=== PATIENT | female | born 1945 | race Caucasian/White ===

== ENCOUNTER 2018-11-02 12:19 | Inpatient (IN) | payer MEDICARE, OTHER ==
[2018-11-01 20:00] VITALS: BP 101/58
[~2018-11-02] VITALS: Ht 172.7 cm; Wt 79.0 kg
[~2018-11-02 12:19] MED LIST: AMBIEN10 MG PO; AUGMENTIN875TAB PO; BENZONATATE200 MG PO; BOOSTRIX IM; CIPROFLOXACN500 MG PO; DETROL2 MG PO; DIFLUCAN150 MG PO; HYDROXYCHLOR200 MG PO; KEFLEX500 MG PO; LEVOTHYROXIN50 MC1 PO; MAGNESIUM30 MG OR; MEDDOSEPAK PO; MUCINEX600 MG PO; OMEGA 31000 MG PO; OMEPRAZOLE40 MG PO; OS-CAL 500500 M1 PO; POT CHLORIDE10 ME1 PO; PREDNISONE20 MG PO; PROAIR HFA IN; PYRIDIUM200 MG PO; RHINOCORT; ZYRTEC10 MG PO
[2018-11-02] MEDS ORDERED: SPIRONOLACT25 MG PO (12:29)
--- NOTE | 2018-11-02 12:54 | NUR ---
PT NOW WITH IV ESTABLISHED, BLOOD DRAWN, URINE COLLECTED. PT AWARE OF CT SCAN WITH ORAL CONTRAST, EXTENDING HER STAY. NO ACUTE DISTRESS.
[2018-11-02 12:59] LABS: HEMATOCRIT 49.4 % (37.0-47.0); HEMOGLOBIN 16.2 g/dl (12.0-16.0); IMMATURE GRANULOCYTES 0.6 % (0.0-5.0); MEAN CELL VOLUME 82.9 fL CALC (80.0-100.0); MEAN CORPUSCULAR HGB 27.2 pG CALC (26.0-32.0); MEAN CORPUSCULAR HGB CONC 32.8 g/L CALC (32.0-36.0); NEUT# 19.41 thou/uL (2.00-7.15); RED BLOOD COUNT 5.96 mill/uL (4.20-5.60); RED CELL DISTRI WIDTH 13.2 % (11.5-15.5)
[2018-11-02 13:14] LABS: URINE BLOOD DIPSTICK NEGATIVE (NEGATIVE); URINE COLOR YELLOW; URINE GLUCOSE - DIPSTICK NEGATIVE (NEGATIVE); URINE KETONE 15 mg/dL (NEGATIVE); URINE LEUK ESTERASE NEGATIVE (NEGATIVE); URINE NITRITE - DIPSTICK NEGATIVE (Negative); URINE PH 5.5 (4.5-8.0); URINE PROTEIN - DIPSTICK 30 mg/dL (NEG-TRACE); URINE SPECIFIC GRAVITY >=1.030; URINE UROBILINOGEN - DIPSTICK 0.2 E.U./dL (0.2)
[2018-11-02 13:17] LABS: URINE BILIRUBIN - DIPSTICK SMALL (NEGATIVE)
[2018-11-02 13:25] LABS: ALBUMIN 4.6 g/dL (3.2-5.0); BILIRUBIN, TOTAL 1.9 mg/dL (0.0-1.4); CREATININE 1.1 mg/dL (0.5-1.0); POTASSIUM 4.4 mmol/l (3.5-5.1); TOTAL PROTEIN 7.7 g/dL (6.3-8.2)
--- NOTE | 2018-11-02 13:37 | NUR ---
PT DRINKING ORAL CONTRAST NOW, NO ISSUE.
[2018-11-02 14:09] LABS: URINE MUCUS FEW hpf (NONE-FEW); URINE SQUAMOUS EPITHELIAL CELL FEW EPI/hpf (0-FEW)
--- NOTE | 2018-11-02 17:16 | NUR ---
PT AWARE OF PENDING ADMISSION. REPORT WAS CALLED TO [facility] PT TO ICU-3 A MED/SURG OVERFLOW. PT TAKEN VIA WHEELCHAIR, NO COMPLAINTS OF PAIN OR OTHERWISE.
[2018-11-02 17:20] VITALS: BP 120/64
--- NOTE | 2018-11-02 17:20 | NUR ---
PT ADMITTED TO ICU BED 3 VIA WHEELCHAIR MED SURG OVERFLOW, PT ALERT AND ORIENTED, ALL MONITORING EQUIPMENT EXPLAINED PRIOR TO APPLICATION, SAFETY MEASURES INTRODUCED, ORIENTED TO ROOM AND UNIT
--- NOTE | 2018-11-02 17:39 | NUR ---
PT. ADMITTED AT THIS TIME; ASSESSMENT COMPLETED; NO RESP DISTRESS NOTED; MEDICATED WITH ORDERED ONE TIME DOSE OF TYLENOL FOR TEMP OF 100.7 AND SLIGHT PAIN OF 3/10 AT THIS TIME; PT. DENIES NEEDING THIS OIL BURNER TECHNICIAN TO CALL FOR FURTHER PAIN MEDS; INSTRUCTED TO CALL IF PAIN INCREASES; VERBALIZES UNDERSTANDING; EDUCATED ON POC, CALL LIGHT, AND ROOM; VERBALIZES UNDERSTANDING; INSTRUCTED TO CALL FOR ALL OOB NEEDS; CALL LIGHT IS IN REACH. IV SITE PATNET TO LAC AND ORDERED LR HUNG AT THIS TIME. PROVIDED ORAL SWABS AT THIS TIME AND PT. IS AWARE THAT SHE IS NOT TO EAT OR DRINK. ENCOURAGED TO CALL FOR ANY NEEDS. CALL LIGHT IS IN REACH. WILL CONTINUE TO MONITOR.
--- NOTE | 2018-11-02 18:55 | NUR ---
REPORT FROM Nirmal FRANCISCO RN. ASSUMED PT. CARE.
--- NOTE | 2018-11-02 19:15 | NUR ---
PT. FOUND AWAKE, ALERT, ORIENTED X 3. SKIN WARM AND DRY. TEMP 98.9. PT. DENIES COMPLAINTS OF PAIN OR NEED AT THIS TIME. STATES PAIN INCREASES WITH MOVEMENT OR PALPATION, BUT DENIES PAIN JUST LAYING IN BED. STATES WITH ONE EPISODE LOOSE/DIARRHEAL STOOL APPROX 45 MINUTES AGO. REPORTS INTERMITTENT NAUSEA, BUT NO EMESIS. RLQ AND UMBILICAL TENDERNESS NOTED UPON PALPATION. RESPS EVEN AND UNLABORED. LUNGS CTA IN ALL [place]. BOWEL SOUND PRESENT X 4 QUADS. DISTIL PULSES INTACT. NO SWELLING NOTED. S1,S2 NOTED. REGULAR HR, SINUS WITHOUT ECTOPY. RENE. DANIEL. NO NEURODEFICITS NOTED. PT. UPDATED ON PLAN OF CARE AND ESTIMATED TIME OF SURGICAL INTERVENTION. WILL CONTINUE TO MONITOR.
[2018-11-02 19:30] VITALS: BP 96/61
--- NOTE | 2018-11-02 19:30 | NUR ---
PT. ASSISTED TO BSC. SMALL LOOSE STOOL NOTED AT THIS TIME. AMBULATORY WITHOUT DIFFICULTIES TO AND FROM BSC. WILL CONTINUE TO MONITOR.
--- NOTE | 2018-11-02 19:32 | NUR ---
PT. TAKEN DOWN TO OR AT THIS TIME BY Anders LUND RN REPORT ENDORSED.
--- NOTE | 2018-11-02 21:42 | NUR ---
PT. RETURNS FROM OR AT THIS TIME. AMBULATORY WITH STEADY GAIT FROM OR STRETCHER TO ICU BED WITHOUT DIFFICULTIES AND PT. DENIES ANY PAIN. UPDATED ON PROCEDURE AND CURRENT STATUS. WILL CONTINUE TO CLOSELY MONITOR.
[2018-11-02 22:00] VITALS: BP 91/56
[2018-11-02 22:15] VITALS: BP 110/55
--- NOTE | 2018-11-02 22:27 | NUR ---
PT. SPEAKING TO FAMILY ON CELL PHONE. CONTINUES ASYMPTOMATIC. DENIES PAIN. IV FLUIDS INFUSING ORDERED. BP IMPROVED AT THIS TIME. CALL LIGHT REMAINS WITHIN REACH. PROVIDED WITH ICE CHIPS PER DR. BERNAL ORDERS FOR DIET TOLERATED. WILL CONTINUE TO OBSERVE.
[2018-11-02 22:30] VITALS: BP 112/57
[2018-11-02 23:00] VITALS: BP 96/53
--- NOTE | 2018-11-02 23:09 | NUR ---
PT. RESTING WITH EYES CLOSED IN NO DISTRESS. RESPS EVEN AND UNLABORED. 98% ON R/A. BP SLIGHTLY LOW AT 97 SYSTOLIC. WILL CONTINUE TO MONITOR. CALL LIGHT REMAINS WITHIN REACH.
[2018-11-03] VITALS (7 sets, daily range): BP systolic 87–106; BP diastolic 42–57
--- NOTE | 2018-11-03 00:30 | NUR ---
IV ZOSYN INFUSED. NO REACTIONS NOTED. WILL CONTINUE TO MONITOR.
--- NOTE | 2018-11-03 02:00 | NUR ---
PT. REMAINS EASILY AROUSABLE TO LIGHT VERBAL STIMULI. REMAINS IN NO DISTRESS. CALL LIGHT REMAINS WITHIN REACH. WILL CONTINUE TO MONITOR.
--- NOTE | 2018-11-03 03:30 | NUR ---
PT. RESTING IN BED WITHOUT COMPLAINTS. REMAINS EASILY AROUSABLE. PT. CONTINUES TO DENY PAIN. IV FLUIDS CONTINUE TO INFUSE WITHOUT SX OF INFILTRATION OR EXTRAVASATION. CALL LIGHT REMAINS WITHIN REACH. NO DISTRESS. BP SLIGHTLY LOW, BUT WILL CONTINUE TO ASSESS. PO ICE CHIPS AND FLUIDS PROVIDED AT THIS TIME.
[2018-11-03 05:33] LABS: IMMATURE GRANULOCYTES 0.5 % (0.0-5.0); MEAN CELL VOLUME 84.8 fL CALC (80.0-100.0); MEAN CORPUSCULAR HGB 27.2 pG CALC (26.0-32.0); MEAN CORPUSCULAR HGB CONC 32.1 g/L CALC (32.0-36.0); NEUT# 9.66 thou/uL (2.00-7.15); RED BLOOD COUNT 4.48 mill/uL (4.20-5.60); RED CELL DISTRI WIDTH 13.5 % (11.5-15.5)
[2018-11-03 05:34] LABS: HEMOGLOBIN 12.2 g/dl (12.0-16.0)
[2018-11-03 05:50] LABS: ALKALINE PHOSPHATASE 55 u/l (38-126); AMYLASE < 30 u/l (30-110); ANION GAP 13 (6-22 (CALC)); BILIRUBIN, TOTAL 1.9 mg/dL (0.0-1.4); BUN 16 mg/dL (8-23); BUN/CREATININE RATIO 13 (12-20 (CALC)); CARBON DIOXIDE 26 mmol/l (22-30); CHLORIDE 102 mmol/l (95-108); CREATININE 1.2 mg/dL (0.5-1.0); GFR 44 ML/MIN (>=60 (CALC)); GFR FOR AFR.AMER. 53 ML/MIN (>=60 (CALC)); LIPASE 14 u/l (23-300); MAGNESIUM 1.7 mg/dL (1.6-2.3); POTASSIUM 4.6 mmol/l (3.5-5.1); SGOT/AST 17 u/l (9-36); SODIUM 136 mmol/l (137-146)
[2018-11-03 05:52] LABS: PROTHROMBIN TIME 13.8 SECONDS (9.0-12.5)
[2018-11-03 05:55] LABS: ALBUMIN 2.8 g/dL (3.2-5.0)
[2018-11-03 06:01] LABS: INTERNATIONAL NORMALIZED RATIO 1.3 RATIO (0.7-1.3)
--- NOTE | 2018-11-03 07:00 | NUR ---
PT. SITTING UP IN BED WITH NO DISTRESS NOTED; B/P READING LOW ON THE MACHINE; PT. IS ASYMPTOMATIC; DENIES DIZZINESS OR WEAKNESS; REPORTS PAIN IS ABOUT A 2-3/10; DENIES NEEDS FOR PAIN MEDICATION AT THIS TIME; ASSESSMENT COMPLETED; PT. AMBULATED AROUND THE UNIT WITH STEADY GAIT WITH STBY ASSISTANCE PROVIDED BY THIS RESTAURANT MAINTENANCE TECHNICIAN. REASSESSED B/P MANUALLY AND IS READING 90/42; PT. REPORTS SHE NORMALLY RUNS LOW WELL AND REMAINS ASYMPTOMATIC. WILL CONTINUE TO MONITOR. PT. ENCOURAGED TO DEEP BREATH AND COUGH AND VERBALIZES UNDERSTANDING. PT. UP TO CHAIR FOR BREAKFAST; INSTRUCTED TO CALL FOR ANY NEEDS; CALL LIGHT IS IN REACH. WILL CONTINUE TO MONITOR.
--- NOTE | 2018-11-03 08:45 | NUR ---
PT. SITTING UP IN BED WITH NO DISTRESS NOTED; DENIES NEEDS. PO FLUIDS ENCOURAGED. PT. TOLERATING DIET WELL. ENCOURAGED TO CALL FOR ANY NEEDS; CALL LIGHT IS IN REACH.
--- NOTE | 2018-11-03 09:28 | NUR ---
PT. DENIES NEEDS FOR PAIN MEDICATIONS; MANUAL B/P IS 98/50 AT THIS TIME; WILL CONTINUE TO MONITOR.
--- NOTE | 2018-11-03 09:40 | NUR ---
RT IN AT BEDSIDE AND GAVE EDUCATION ON INCENTIVE SPIROMETER.
--- NOTE | 2018-11-03 10:12 | NUR ---
DR. ROSARIO IS IN AT BEDSIDE WITH PT.
--- NOTE | 2018-11-03 10:30 | NUR ---
BLADDER SCANNED AT THIS TIME AND READS 227MLS; PT. UP TO BSC AND VOIDED 225MLS AT THIS TIME; PVR= 2MLS; IS AWARE OF PT'S LOOSE BM'S AND LOW B/P; WILL CONTINUE TO MONITOR.
--- NOTE | 2018-11-03 11:37 | NUR ---
VS OBTAINED; DENIES NEEDS/PAIN. UPDATED ON POC; NPO FOR ULTRASOUND; EDUCATION GIVEN ON LOVENOX; SCHED MEDS GIVEN. CALL LIGHT IS IN REACH.
--- NOTE | 2018-11-03 12:55 | NUR ---
PT. DOWN TO ULTRASOUND VIA W/C ACCOMPANIED BY VOLUNTEER.
--- NOTE | 2018-11-03 14:00 | NUR ---
PT. WASHED UP AT BEDSIDE AND TEMP REASSESSED AT THIS TIME AND IS 101.1; NOTIFIED DR. ROSARIO OF TEMP; NEW ORDERS RECEIVED AND TO BE CARRIED OUT; UPDATED PT. ON POC.
--- NOTE | 2018-11-03 14:58 | NUR ---
SPOKE WITH DR. BERNAL IN REGARDS TO PT. AND UPDATED HIM ON STATUS; PER DR. BERANL OKAY TO D/C FROM HIS STANDPOINT TOMORROW IF PRIMARY IS READY TO D/C.
--- NOTE | 2018-11-03 15:05 | NUR ---
REASSESSED TEMP AND NOW IS DOWN TO 100.1; WILL CONTINUE TO MONITOR.
--- NOTE | 2018-11-03 18:02 | NUR ---
PT. SITTING UP IN BED WITH NO DISTRESS NOTED; DENIES NEEDS/PAIN. SCHED EDU HUERTA; TEMP REASSESSED AND IS NOW 99; CALL LIGHT IS IN REACH. WILL CONTINUE TO MONITOR.
--- NOTE | 2018-11-03 18:50 | NUR ---
REPORT FROM Nirmal FRANCISCO RN. ASSUMED PT. CARE.
--- NOTE | 2018-11-03 19:25 | NUR ---
PT. FOUND AWAKE, ALERT, ORIENTED X 3. SKIN WARM AND DRY. FEBRILE. 100.7 AT THIS TIME. SURGICAL INCISIONS CLEAN DRY, NO REDNESS OR DRAINAGE NOTED. ASSESSMENT BENIGN, LUNGS CTA. PULSES INTACT. INTERMITTENT COUGH. C/O MILD ABDOMINAL SORENESS. STATES SHE HAS MORE PAIN TO RUQ AT THE MAIN INVESTIGATIONAL SITE OF ABDOMINAL ULTRASOUND. CALL LIGHT WITHIN REACH. PT. DENIES COMPLAINTS OR NEEDS. UPDATED ON PLAN OF CARE FOR THE EVENING/NIGHT. WILL CONTINUE TO ASSESS.
--- NOTE | 2018-11-03 21:58 | NUR ---
PT. RESTING WITH EYES CLOSED IN NO DISTRESS. RESPS EVEN AND UNLABORED. SKIN WARM AND DRY. RENE. VSS.
--- NOTE | 2018-11-03 23:38 | NUR ---
PT. AMBULATORY AROUND UNIT AT THIS TIME. TOLERATED WELL. ASSISTED BACK TO BED AT THIS TIME. DENIES COMPLAINTS OF PAIN OR NEED. WILL CONTINUE TO MONITOR.
--- NOTE | 2018-11-04 01:15 | NUR ---
PT. ASSISTED TO BSC. AMBULATORY WITH STEADY GAIT TO BSC. NO DISTRESS. VSS. WILL CONTINUE TO MONITOR.
[2018-11-04 04:00] VITALS: BP 94/52
--- NOTE | 2018-11-04 04:15 | NUR ---
PT. FEBRILE AT 100.5 WILL MEDICATE ORDERED. PT. CONTINUES TO DENY COMPLAINTS OF PAIN OR NEEDS. AMBULATORY AROUND ROOM WITHOUT DIFFICULTIES. CALL LIGHT REMAINS WITHIN REACH. WILL CONTINUE TO ASSESS.
--- NOTE | 2018-11-04 04:50 | NUR ---
LAB AT BEDSIDE AT THIS TIME TO DRAW PATIENT.
--- NOTE | 2018-11-04 05:01 | NUR ---
PT. ONLY COMPLAINS OF PAIN TO RT. UPPER QUADRANT SINCE HAVING ABDOMINAL ULTRASOUND. MEDICATED FOR LOW GRADE FEVER OF 100.5 TYMPANIC AT THIS TIME. PT. REMAINS STABLE. WILL CONTINUE TO MONITOR.
[2018-11-04 05:23] LABS: ALBUMIN 2.7 g/dL (3.2-5.0); ALKALINE PHOSPHATASE 63 u/l (38-126); ANION GAP 12 (6-22 (CALC)); BILIRUBIN, TOTAL 1.3 mg/dL (0.0-1.4); BUN 10 mg/dL (8-23); BUN/CREATININE RATIO 10 (12-20 (CALC)); CARBON DIOXIDE 24 mmol/l (22-30); CHLORIDE 103 mmol/l (95-108); GFR 54 ML/MIN (>=60 (CALC)); GFR FOR AFR.AMER. > 60 ML/MIN (>=60 (CALC)); MAGNESIUM 1.7 mg/dL (1.6-2.3); POTASSIUM 4.4 mmol/l (3.5-5.1); SGOT/AST 18 u/l (9-36); SODIUM 134 mmol/l (137-146); TOTAL PROTEIN 4.9 g/dL (6.3-8.2)
[2018-11-04 05:40] LABS: HEMOGLOBIN 11.9 g/dl (12.0-16.0); IMMATURE GRANULOCYTES 1.7 % (0.0-5.0); MEAN CELL VOLUME 84.9 fL CALC (80.0-100.0); MEAN CORPUSCULAR HGB 27.3 pG CALC (26.0-32.0); MEAN CORPUSCULAR HGB CONC 32.2 g/L CALC (32.0-36.0); NEUT# 7.04 thou/uL (2.00-7.15); RED BLOOD COUNT 4.36 mill/uL (4.20-5.60); RED CELL DISTRI WIDTH 13.5 % (11.5-15.5)
--- NOTE | 2018-11-04 06:25 | NUR ---
IV ZOSYN INFUSING AT THIS TIME. PT. CONTINUES TO DENY NEEDS. TEMP NOW 99.0. UPDATED ON CURRENT LAB WORK AND PLAN OF CARE FOR THIS AM. WILL CONTINUE TO MONITOR.
--- NOTE | 2018-11-04 07:20 | NUR ---
PT RESTING IN BED, ALERT AND ORIENTED, STATES PAIN IS TOLERABLE, "HURTS WOIRSE WHERE I HAD AN ULTRASOUND YESTERDAY THAN ANYWHERE ELSE, TOLERATING DIET WELL, DENIES N/V, STATES SHE DOES HAVE SOME LOOSE STOOLS; STATES DESIRE TO GET TO GO HOME TODAY, EDUCATED PT REGARDING D/C PROCESS, VERBALIZES UNDERSTANDING, BP SLIGHTLY HYPOTENSIVE, PT ASMYPTOMATIC, DENIES WEAKNESS OR DISZZINESS, STATES SHE IS OFTEN ON THE LOW SIDE, COMFORT MEASURES PROVIDED, CALL KENYON WITHIN REACH, ENCOURAGED TO CALL FOR ANY NEEDED ASSISTANCE.
--- NOTE | 2018-11-04 08:07 | NUR ---
RESTING SITTING UP ON EDGE OF BED, CALL KENYON WITHIN REACH, TOLERATING DIET WELL.
--- NOTE | 2018-11-04 08:49 | NUR ---
PT RESTING TAKES PO MEDICATIONS W/O INCIDENT, CALL KENYON WITHIN REACH, EDUCATED REGARDING SHOWER TODAY IF NO D/C ORDERS REC'D. PT VERBALIZES UNDERSTANDING.
--- NOTE | 2018-11-04 09:22 | NUR ---
PT RESTING IN BED, OFFERS NO NEW COMPLAINTS, CALL KENYON WITHIN REACH,
--- NOTE | 2018-11-04 10:28 | NUR ---
PT AWARE OF PLANNED TRANSFER TO MED SURG AND THE NEED TO BE AFEBRILE FOR 24 HRS PRIOR TO D/C, CALL KENYON WITHIN REACH, ALL QUESTIONS ANSWERED.
[2018-11-04 10:32] VITALS: BP 93/48
--- NOTE | 2018-11-04 12:49 | NUR ---
VISITORS AT BEDSIDE, OFFERS NO COMPLAINTS, EDUCATED REGARDING PLANS FOR TRANSFER TO MEDICAL FLOOR LATER TODAY AND POSSIBLE D/C HOME TOMORROW EDUCATED PT REGARDING OP IVF AND EXPECTATIONS, ALL QUESTIONS ANSWERED, WILL CONTINUE TO MONITOR.
--- NOTE | 2018-11-04 13:11 | NUR ---
REPORT CALLED TO EVETTE DRAKE ON MED SURG ROOM 289 ASSIGNED
[2018-11-04 13:45] VITALS: BP 136/70
--- NOTE | 2018-11-04 13:45 | NUR ---
PT CAME FROM ICU VIA WHEELCHAIR AND REPORT RECEIVED FROM NOELLE MARTINEZ. CERTIFIED MEDICAL AIDE IN ROOM TO OBTAIN VS PT TEMP IS 100.8. CERTIFIED MEDICAL AIDE IN ROOM TO SETUP PT FOR A SHOWER WILL RECHECK TEMP LATER. RESPS EVEN AND UNLABORED. X3 ABD INCISION CDI. PT DENIES NEED AT THIS TIME. CALL LIGHT IN REACH.
--- NOTE | 2018-11-04 13:45 | NUR ---
PT TRANSFERRED TO MED SURG ROOM 289 VIA WHEELCHAIR, ALLBELINGINGS SENT WITH PATIENT, WEIGHT OBTAINED UPON ARRIVAL, ORIENTED TO ROOM UNIT. CALL KENYON WITHIN REACH.
[2018-11-04 15:20] VITALS: BP 130/56
--- NOTE | 2018-11-04 15:27 | NUR ---
PT IS SITTING IN RECLINER. PT TEMP IS 101.3. MEDICATED PT WITH TYLENOL SEE MAR. COOL WASHCLOTH GIVEN FOR FOREHEAD AND ROOM COOL. CALL LIGHT IN REACH. NOTIFIED ESTEFANY NORIEGA NO NEW ORDERS RECEIVED.
--- NOTE | 2018-11-04 18:30 | NUR ---
PT STATED THAT SHE FEELS BLOATED IN ABD. ENCOURAGE PT TO AMBULATE. PT STATED OKAY .AMBULATING WITH PT IN THE HALLWAYS . DR. BERNAL CAME TO ASSESS PT. MADE MD AWARE THAT PT HAD A TEMP EARLIER TODAY. PT TOLD MD SHE HAS BEEN HAVING LOOSE BM. ORDER RECEIVED.
--- NOTE | 2018-11-04 19:30 | NUR ---
PATIENT SITTING UP AT BEDSIDE PLAYING CARDS WITH VISITOR AT BEDSIDE. PATIENT IS AWAKE ALERT AND ORIENTEDX3. PATIENT WITH ONLY COMPLAINT OF FEELING BLOATED. IV SITE TO RIGHT WRIST INTACT WITH IVF PATENT AND INFUSING AT KVO RATE. ENCOURAGED AMBULATION. SAFETY PRECAUTIONS REINFORCED. CALL LIGHT IN REACH. WILL CONT TO MONITOR.
[2018-11-04 19:52] VITALS: BP 106/66
--- NOTE | 2018-11-04 21:00 | NUR ---
PATIENT UP AND AMB IN THE GARCIA-STEADY ON HER FEET. BACK TO THE BED. ABD IS SOFT WITH BS+-3 SMALL INCISIONS INTACT WITH SURGICAL GLUE-NO DRAINAGE NOTED. PATIENT DECLINES ANY PAIN MEDS AT THIS TIME. VOIDING QS REI URINE IN BR. PATIENT STATES THAT SHE HAD LOOSE STOOL EARLIER TODAY. SAFETY PRECAUTIONS REINFORCED. CALL LIGHT IN REACH. WILL CONT TO MONITOR.
--- NOTE | 2018-11-04 23:30 | NUR ---
PATIENT RESTING IN BED-STOOL SPEC OBTAINED AND SENT TO LAB. PATIENT MEDICATED FOR SLEEP WITH RESTORIL 15MG PO. SAFETY PRECAUTIONS REINFORCED. CALL LIGHT IN REACH. WILL CONT TO MONITOR.
[2018-11-05 00:54] VITALS: BP 129/67
[2018-11-05 04:00] VITALS: BP 114/55
[2018-11-05 04:33] LABS: C. DIFFICILE TOXIN A&B NEGATIVE (NEGATIVE)
[2018-11-05 05:05] LABS: HEMATOCRIT 34.4 % (37.0-47.0); HEMOGLOBIN 11.2 g/dl (12.0-16.0); IMMATURE GRANULOCYTES 0.5 % (0.0-5.0); MEAN CELL VOLUME 83.5 fL CALC (80.0-100.0); MEAN CORPUSCULAR HGB 27.2 pG CALC (26.0-32.0); MEAN CORPUSCULAR HGB CONC 32.6 g/L CALC (32.0-36.0); NEUT# 4.72 thou/uL (2.00-7.15); RED BLOOD COUNT 4.12 mill/uL (4.20-5.60); RED CELL DISTRI WIDTH 13.4 % (11.5-15.5)
[2018-11-05 05:18] LABS: ANION GAP 13 (6-22 (CALC)); BUN 9 mg/dL (8-23); BUN/CREATININE RATIO 10 (12-20 (CALC)); CARBON DIOXIDE 23 mmol/l (22-30); CHLORIDE 101 mmol/l (95-108); CREATININE 0.9 mg/dL (0.5-1.0); GFR > 60 ML/MIN (>=60 (CALC)); GFR FOR AFR.AMER. > 60 ML/MIN (>=60 (CALC)); POTASSIUM 4.3 mmol/l (3.5-5.1); SODIUM 133 mmol/l (137-146)
--- NOTE | 2018-11-05 06:00 | NUR ---
PATIENT UP IN ROOM-STEADY ON HER FEET-STATES THAT SHE SLEPT WELL LAST NIGHT. STATES THAT SHE HAD ANOTHER LOOSE BM THIS MORNING. PASSING ALOT OF GAS PER PATIENT. IV SITE TO RIGHT WRIST INTACT WITH IVF AT KVO RATE. ZOSYN INFUSING ORDERED. CALL LIGHT IN REACH. WILL CONT TO MONITOR.
--- NOTE | 2018-11-05 07:00 | NUR ---
REPORT RECEIVED FROM MERISSA. PT IS RESTING IN BED WITH NO S/S OF DISTRESS NOTED. PT DENIES NEEDS AT THIS TIME CALL LIGHT IN REACH.
[2018-11-05 08:02] VITALS: BP 123/52
--- NOTE | 2018-11-05 08:05 | NUR ---
ASSESSMENT DONE. RESPS EVEN AND UNLABORED. PT DENIES PAIN AT THIS TIME. #20 RW THAT APPEARS HEALTHY. X3 ABD INCISIONS WITH NO DRAINAGE NOTED. PT DENIES NEEDS AT THIS TIME. CALL LIGHT IN REACH.
--- NOTE | 2018-11-05 12:11 | NUR ---
PT IS SITTING IN THE SIDE OF THE BED EATING HER LUNCH. PT DENIES NEEDS AT THIS TIME. CALL LIGHT IN REACH.
[2018-11-05 16:00] VITALS: BP 149/86
--- NOTE | 2018-11-05 16:09 | NUR ---
PT IS SITTING IN CHAIR. PT DENIES NEEDS AT THIS TIME. CALL LIGHT IN REACH.
[2018-11-05 19:20] VITALS: BP 144/77
--- NOTE | 2018-11-05 19:30 | NUR ---
PATIENT UP IN HER WITH SEVERAL VISITOR IN ROOM VISITING. PATIENT IS STEADY ON FEET. ALERT AND ORIENTEDX. PATIENT STILL WITH IV SITE TO RIGHT WRIST WITH IVF LR PATENT AND INFUSING AT KVO RATE. PATIENT STATES THAT SHE DID HAVE LOOSE STOOLS THIS MORNING UP UNTIL ABOUT 10AM AND NONE SINCE. INSTRUCTED THAT WE DO STILL NEED ANOTHER STOOL SPEC WHEN POSSIBLE. SAFETY PRECAUTIONS REINFORCED.CALL LIGHT IN REACH. WILL CONT TO MONITOR.
[2018-11-06 00:18] VITALS: BP 149/84
--- NOTE | 2018-11-06 00:27 | NUR ---
PATIENT RESTING IN BED WATCHING TV-STATES THAT SHE IS PASSING ALOT OF GAS TONIGHT BUT NO STOOL SINCE THIS MORNING, AMBULATING IN THE HALLS SEVERAL TIMES YESTERDAY. PATIENT WITH TEMP OF 98.8 AT THIS TIME. IV ZOSYN INFUSING ORDERED VIA RIGHT WRIST SITE. REMAINS HEALTHY AT THIS TIME. ABD IS SOFT WITH BS+. DENIES ANY DIFFICULTY WITH URINATION. 3 SMALL WOUNDS TO ABD CDI WITH SURGICAL GLUE-NO DRAINAGE NOTED. MEDICATED WITH RESTORIL 15MG PO FOR SLEEP. DECLINES ANY PAIN MEDS TONIGHT. SAFETY PRECAUTIONS REINFORCED. CALL LIGHT IN REACH. WILL CONT TO MONITOR.
--- NOTE | 2018-11-06 03:42 | NUR ---
PATIENT RESTING IN BED AT THIS TIME WITH EYES CLOSED. CALL LIGHT IN REACH. WILL CONT TO MONITOR.
[2018-11-06 05:30] VITALS: BP 140/79
[2018-11-06 05:38] LABS: ANION GAP 13 (6-22 (CALC)); BUN 10 mg/dL (8-23); BUN/CREATININE RATIO 11 (12-20 (CALC)); CARBON DIOXIDE 25 mmol/l (22-30); CHLORIDE 102 mmol/l (95-108); GFR 54 ML/MIN (>=60 (CALC)); GFR FOR AFR.AMER. > 60 ML/MIN (>=60 (CALC)); MAGNESIUM 1.8 mg/dL (1.6-2.3); POTASSIUM 4.3 mmol/l (3.5-5.1); SODIUM 135 mmol/l (137-146)
[2018-11-06 05:54] LABS: HEMATOCRIT 36.6 % (37.0-47.0); IMMATURE GRANULOCYTES 0.6 % (0.0-5.0); MEAN CELL VOLUME 83.2 fL CALC (80.0-100.0); MEAN CORPUSCULAR HGB 27.3 pG CALC (26.0-32.0); MEAN CORPUSCULAR HGB CONC 32.8 g/L CALC (32.0-36.0); NEUT# 2.82 thou/uL (2.00-7.15); RED BLOOD COUNT 4.4 mill/uL (4.20-5.60); RED CELL DISTRI WIDTH 13.2 % (11.5-15.5)
[2018-11-06 07:29] VITALS: BP 147/76
--- NOTE | 2018-11-06 07:41 | NUR ---
PT. AMBULATING BACK FROM THE BATHROOM; NO DISTRESS NOTED. VSS; PO FLUIDS OFFERED. PT. WANTS IV SITE TO BE CHANGED; IV REMOVED AT THIS TIME TO RW; CATHETER TIP IS INTACT; WILL RESTART; ASSESSMENT COMPLETED; SEE INTERVENTION; INCENTIVE SPIROMETER IN PLACE; ENCOURAGED TO CALL FOR ANY NEEDS; CALL LIGHT IS IN REACH. WILL CONTINUE TO MONITOR.
--- NOTE | 2018-11-06 09:55 | NUR ---
NEW IV STARTED TO LH X1 ATTEMPT; PT. DENIES FURTHER NEEDS; ENCOURAGED TO CALL FOR ANY NEEDS; CALL LIGHT IS IN REACH.
[2018-11-06 11:05] VITALS: BP 119/61
--- NOTE | 2018-11-06 12:00 | NUR ---
PT. SITTING UP IN CHAIR WITH FAMILY MEMBERS AT BEDSIDE; NO DISTRESS NOTED; DENIES NEEDS/PAIN. IV SITE FLUSHED WITH NS AND SL; CALL LIGHT IS IN REACH.
[2018-11-06] MEDS ORDERED: LORTAB5 PO (13:22)
[2018-11-06] MEDS ORDERED: RESTORIL15 MG PO (13:22)
[2018-11-06] MEDS ORDERED: AUGMENTIN875TAB PO (13:22)
--- NOTE | 2018-11-06 14:15 | NUR ---
DISCHARGE INSTRUCTIONS GIVEN ALONG WITH PRESCRIPTIONS; VERBALIZES ALL UNDERSTANDING; IV SITE REMOVED; CATH TIP INTACT; INSTRUCTED TO CALL WHEN FAMILY IS HERE TO GO DOWN VIA W/C.
--- NOTE | 2018-11-06 14:59 | NUR ---
PT. DOWN VIA W/C ACCOMPANIED BY VOLUNTEER.
== END 2018-11-06 14:58 | disposition home or self-care (01) | DRG 339 ==
LOC: ED 12:19 → ED-I 15:59 → ED 16:12 → ICU 16:13 → MS2 11-03 10:24 → ICU 11-03 10:25 → MS2 11-04 13:51
PROVIDERS: Family Medicine; Nurse Practitioner Family; Surgery; ADMIT Internal Medicine Nephrology; ATTEND Internal Medicine Nephrology
PROC: 0DTJ4ZZ Resection of Appendix, Percutaneous Endoscopic Approach (ICD-10-PCS; principal; 2018-11-02)
DX: K35.32 Acute appendicitis with perforation, localized peritonitis, and gangrene, without abscess (principal); E87.1 Hypo-osmolality and hyponatremia; N17.9 Acute kidney failure, unspecified; K40.90 Unilateral inguinal hernia, without obstruction or gangrene, not specified as recurrent; E86.0 Dehydration; N18.9 Chronic kidney disease, unspecified; T39.395A Adverse effect of other nonsteroidal anti-inflammatory drugs [NSAID], initial encounter; M06.9 Rheumatoid arthritis, unspecified; I95.9 Hypotension, unspecified; F41.9 Anxiety disorder, unspecified; K52.9 Noninfective gastroenteritis and colitis, unspecified; K21.9 Gastro-esophageal reflux disease without esophagitis; K57.30 Diverticulosis of large intestine without perforation or abscess without bleeding; Z79.899 Other long term (current) drug therapy; Z95.2 Presence of prosthetic heart valve
CPT/HCPCS: J0131; J1650; J2710; S0164

== ENCOUNTER → 2018-12-29 | Outpatient (REF) | payer MEDICARE, OTHER ==
[~2018-12-29] MED LIST changes: +LORTAB5 PO; +RESTORIL15 MG PO; +SPIRONOLACT25 MG PO
[2018-12-29 09:53] LABS: HEMATOCRIT 46.3 % (37.0-47.0); HEMOGLOBIN 14.7 g/dl (12.0-16.0); IMMATURE GRANULOCYTES 0.2 % (0.0-5.0); MEAN CELL VOLUME 84.3 fL CALC (80.0-100.0); MEAN CORPUSCULAR HGB 26.8 pG CALC (26.0-32.0); MEAN CORPUSCULAR HGB CONC 31.7 g/L CALC (32.0-36.0); NEUT# 2.52 thou/uL (2.00-7.15); RED BLOOD COUNT 5.49 mill/uL (4.20-5.60); RED CELL DISTRI WIDTH 13.7 % (11.5-15.5)
== END | disposition home or self-care (01) ==
LOC: LAB 08:17
PROVIDERS: ATTEND Internal Medicine
DX: D72.818 Other decreased white blood cell count (principal)

== ENCOUNTER 2021-08-25 06:52 | Emergency (ER) | payer MEDICARE ==
[~2021-08-25] VITALS: Ht 172.7 cm; Wt 76.0 kg
[2021-08-25 07:25] LABS: HEMOGLOBIN 15.3 g/dl (12.0-16.0); IMMATURE GRANULOCYTES 0.4 % (0.0-5.0); MEAN CELL VOLUME 85.3 fL CALC (80.0-100.0); MEAN CORPUSCULAR HGB 27.2 pG CALC (26.0-32.0); MEAN CORPUSCULAR HGB CONC 31.9 g/dL CAL (32.0-36.0); NEUT# 4.49 thou/uL (2.00-7.15); RED BLOOD COUNT 5.63 mill/uL (4.20-5.60); RED CELL DISTRI WIDTH 13.7 % (11.5-15.5)
[2021-08-25 07:46] LABS: ACT PARTIAL THROMBO TIME 25.3 SECONDS (20.0-32.5); ALBUMIN 4.4 g/dL (3.2-5.0); ALKALINE PHOSPHATASE 77 u/l (38-126); AMYLASE 55 u/l (30-110); ANION GAP 15 (6-22 (CALC)); BILIRUBIN, TOTAL 0.8 mg/dL (0.0-1.4); BUN 26 mg/dL (8-23); BUN/CREATININE RATIO 26 (12-20 (CALC)); CARBON DIOXIDE 26 mmol/l (22-30); CHLORIDE 99 mmol/l (95-108); GFR 54 ML/MIN (>=60 (CALC)); GFR FOR AFR.AMER. > 60 ML/MIN (>=60 (CALC)); INTERNATIONAL NORMALIZED RATIO 1.1 RATIO (0.7-1.3); LIPASE 97 u/l (23-300); MAGNESIUM 1.9 mg/dL (1.6-2.3); POTASSIUM 4.1 mmol/l (3.5-5.1); PROTHROMBIN TIME 11.3 SECONDS (9.0-12.5); SGOT/AST 22 u/l (9-36); SODIUM 136 mmol/l (137-146); TOTAL PROTEIN 7.2 g/dL (6.3-8.2)
[2021-08-25 07:58] LABS: D-DIMER 0.36 mg/L (0.19-0.60)
[2021-08-25 07:59] LABS: MYOGLOBIN 57 ng/mL (0 - 62)
[2021-08-25 09:33] LABS: URINE BILIRUBIN - DIPSTICK NEGATIVE (NEGATIVE); URINE BLOOD DIPSTICK NEGATIVE (NEGATIVE); URINE COLOR YELLOW; URINE GLUCOSE - DIPSTICK NEGATIVE (NEGATIVE); URINE KETONE NEGATIVE (NEGATIVE); URINE LEUK ESTERASE NEGATIVE (NEGATIVE); URINE NITRITE - DIPSTICK NEGATIVE (Negative); URINE PH 7.5 (4.5-8.0); URINE PROTEIN - DIPSTICK NEGATIVE (NEG-TRACE); URINE SPECIFIC GRAVITY 1.015; URINE UROBILINOGEN - DIPSTICK 0.2 E.U./dL (0.2)
[2021-08-25] MEDS ORDERED: PREDNISONE20 MG PO (11:39)
[2021-08-25] MEDS ORDERED: LEFLUNOMIDE10 MG PO (11:41)
[2021-08-25 13:09] VITALS: BP 102/65
== END 2021-08-25 13:10 | disposition short-term general hospital (02) ==
LOC: ED 06:52
PROVIDERS: Family Medicine
DX: I48.91 Unspecified atrial fibrillation (principal); R79.89 Other specified abnormal findings of blood chemistry; K21.9 Gastro-esophageal reflux disease without esophagitis; Z95.2 Presence of prosthetic heart valve; Z20.822 Contact with and (suspected) exposure to COVID-19